=== PATIENT | female | born 1975 | race Caucasian/White ===

== ENCOUNTER 2025-03-02 18:50 | Emergency (ER) | payer OTHER ==
[~2025-03-02] VITALS: Ht 170.2 cm; Wt 63.5 kg
[2025-03-02 19:12] VITALS: BP 138/80; TEMP 98.3; O2SAT 97
[2025-03-02] MEDS ORDERED: LIDOCAINE HCL/MPF 1% 30 ML VIAL IJ ONE (19:47)
[2025-03-02] MEDS: TDAP [DIPH/PERTUSSIS/TET] 0.5 ML VIAL IM ONE (19:53)
[2025-03-02] MEDS: BACI/NEOM/POLY B OINT PKT 1 UDPKT PACKET TP ONE (19:53)
[2025-03-02] MEDS: LIDOCAINE HCL/PF 1% 30 ML VIAL TP ONE (19:54)
[2025-03-02] MEDS ORDERED: MUPI22OI2 TP (20:22)
== END 2025-03-02 20:25 | disposition home or self-care (01) ==
LOC: ER 18:57
DX: S61.216A Laceration without foreign body of right little finger without damage to nail, initial encounter (principal); I34.1 Nonrheumatic mitral (valve) prolapse; Z88.0 Allergy status to penicillin; Z88.1 Allergy status to other antibiotic agents; W26.0XXA Contact with knife, initial encounter; Y93.G3 Activity, cooking and baking; Y92.89 Other specified places as the place of occurrence of the external cause; Y99.9 Unspecified external cause status
CPT/HCPCS: 12001; 90471; 90715; 99283; A6403; J3490